=== PATIENT | male | born 1955 | race Caucasian/White ===

== ENCOUNTER 2018-09-13 22:42 | Emergency (ER) | payer OTHER ==
[2018-09-13 23:11] LABS: ABSOLUTE BASOPHILS # (AUTO) 0.1 10^3/uL (0.0-0.2); ABSOLUTE EOSINOPHILS # (AUTO) 0.4 10^3/uL (0.0-0.6); ABSOLUTE LYMPHOCYTES (AUTO) 4.9 10^3/uL (0.5-4.7); ABSOLUTE MONOCYTES (AUTO) 1.3 10^3/uL (0.1-1.4); ABSOLUTE NEUT (AUTO) 6.9 10^3/uL (1.7-8.2); BASOPHILS % (AUTO) 0.5 % (0-2); EOSINOPHILS % (AUTO) 3.1 % (0-6); HEMATOCRIT 49.2 % (37.9-51.0); HEMOGLOBIN 16.7 g/dL (13.5-17.0); LYMPHOCYTES % (AUTO) 36.1 % (13-45); MEAN CORPUSCULAR HEMOGLOBIN 31.7 pg (27.0-33.4); MEAN CORPUSCULAR VOLUME 93 fl (80-97); MONOCYTES % (AUTO) 9.5 % (3-13); PLATELET COUNT 335 10^3/uL (150-450); RED BLOOD COUNT 5.28 10^6/uL (4.35-5.55); RED CELL DISTRIBUTION WIDTH 14.7 % (11.5-14.0); SEGMENTED NEUTROPHILS % (AUTO) 50.8 % (42-78); TOTAL CELLS COUNTED % (AUTO) 100 %; WHITE BLOOD COUNT 13.6 10^3/uL (4.0-10.5)
--- NOTE | 2018-09-13 23:13 | RADIOLOGY REPORT (SQ) ---
EXAM DESCRIPTION: CT HEAD WITHOUT IV CONTRAST COMPLETED DATE/TME: 09/13/2018 00:00 CLINICAL HISTORY: 62 years, Male, s/s of a stroke. Weakness COMPARISON: None. TECHNIQUE: 508 Images stored on PACS. All CT scanners at this facility use dose modulation, iterative reconstruction, and/or weight based dosing when appropriate to reduce radiation dose to as low as reasonably achievable (ALARA). [facility]: Dose Right [facility]: CareDose [facility]: Dose Right [facility]: Teradose 4D [facility]: [place]ta Analog LIMITATIONS: None. FINDINGS: The globes are intact. Mucosal thickening of the ethmoid air cells. Polyp of the right maxillary sinus. No displaced or depressed skull fracture. No intra or extra-axial hemorrhage. Diffuse atrophy. Hypodensities in the periventricular and subcortical white matter consistent with sequelae of small vessel ischemic change. Wedge-shaped area of diminished attenuation in the left temporo-parietal region consistent with age indeterminate infarct. This is nearly isodense to CSF, suggesting this is at least subacute or old in nature. However there is a second slightly wedge-shaped area of diminished attenuation in the left parieto-occipital region, consistent with infarct of indeterminate age. No mass or midline shift. IMPRESSION: What is likely a remote area of infarct in the left temporoparietal region. Atrophy. Small vessel ischemic change. Age-indeterminate infarct in the left parieto-occipital region. TECHNICAL DOCUMENTATION: Quality ID # [id number]: Final reports with documentation of one or more dose reduction techniques (e.g., Automated exposure control, adjustment of the mA and/or kV according to patient size, use of iterative reconstruction technique) copyright 2011 [employer]- All Rights Reserved
[2018-09-13 23:14] LABS: INTERNATIONAL RATION (INR) 0.92; PROTHROMBIN TIME 12.8 SEC (11.4-15.4)
[2018-09-13 23:15] LABS: PARTIAL THROMBOPLASTIN TIME 31.3 SEC (23.5-35.8)
--- NOTE | 2018-09-13 23:19 | RADIOLOGY REPORT (SQ) ---
EXAM DESCRIPTION: XR CHEST 1 VIEW COMPLETED DATE/TME: 09/13/2018 22:56 CLINICAL HISTORY: 62 years, Male, stroke. Weakness COMPARISON: None. NUMBER OF VIEWS: 1 TECHNIQUE: Portable chest LIMITATIONS: None. FINDINGS: The heart size is normal. Osteopenia. COPD. Subsegmental atelectasis versus infiltrate left lung base. No pneumothorax IMPRESSION: Subsegmental atelectasis or infiltrate left lung base. Osteopenia. COPD copyright 2010 [employer]- All Rights Reserved
[2018-09-13 23:23] LABS: ALANINE AMINOTRANSFERASE 21 U/L (21-72); ALBUMIN 4.2 g/dL (3.5-5.0); ALKALINE PHOSPHATASE 72 U/L (38-126); ANION GAP 10 (5-19); ASPARTATE AMINO TRANSFERASE 21 U/L (17-59); BILIRUBIN,DIRECT 0.1 mg/dL (0.0-0.4); BILIRUBIN,TOTAL 0.3 mg/dL (0.2-1.3); BLOOD UREA NITROGEN 17 mg/dL (7-20); CALCIUM 9.7 mg/dL (8.4-10.2); CARBON DIOXIDE 24 mmol/L (22-30); CHLORIDE 106 mmol/L (98-107); CREATINE KINASE 53 U/L (55-170); GLUCOSE 104 mg/dL (75-110); SODIUM 139.6 mmol/L (137-145); TOTAL PROTEIN 7.2 g/dL (6.3-8.2)
[2018-09-13 23:30] LABS: POTASSIUM 4.5 mmol/L (3.6-5.0)
[2018-09-13 23:36] LABS: CREATINE KINASE MB < 0.22 ng/mL (<4.55); TROPONIN I < 0.012 ng/mL
[2018-09-13] MEDS ORDERED: ALTEPLASE INJ 100 MG VIAL ONE (23:51)
--- NOTE | 2018-09-13 23:59 | ER Document Report ---
ED General - General Chief Complaint: S/S of Possible Stroke Stated Complaint: STROKE SYMPTOMS Time Seen by Provider: 09/13/18 22:56 Mode of Arrival: Medic Information source: Emergency Med Personnel Notes: 62-year-old male brought to the emergency department by EMS for CVA. Patient was complaining of a headache at 2030. At 2154 the patient began stumbling and knocked over a TV. noticed the patient to have a right-sided facial droop, right upper and lower extremity weakness. She gave 325 mg of aspirin and called EMS. Patient does not follow-up with a primary care physician. He denies any medical problems. He states that he is not on any medications. He denies any recent trauma or surgeries. TRAVEL OUTSIDE OF THE [place] IN LAST 30 DAYS: No - HPI Onset: Just prior to arrival Onset/Duration: Sudden Quality of pain: No pain Severity: Severe Associated symptoms: None Exacerbated by: Denies Relieved by: Denies Similar symptoms previously: No Recently seen / treated by doctor: No - Related Data Allergies/Adverse Reactions: No Known Allergies Allergy (Unverified 09/13/18 23:23) Past Medical History - General Information source: Patient - Social History Smoking Status: Current Every Day Smoker Chew tobacco use (# tins/day): No Frequency of alcohol use: None Family History: Reviewed & Not Pertinent Patient has suicidal ideation: No Patient has homicidal ideation: No Renal/ Medical History: Denies: Hx Peritoneal Dialysis Review of Systems - Review of Systems Constitutional: No symptoms reported EENT: No symptoms reported Cardiovascular: No symptoms reported Respiratory: No symptoms reported Gastrointestinal: No symptoms reported Genitourinary: No symptoms reported Musculoskeletal: No symptoms reported Skin: No symptoms reported Neurological/Psychological: Weakness, Paralysis, Speech impairment, Numbness -: Yes All other systems reviewed and negative Physical Exam - Vital signs Vitals: Pulse Ox 95 09/13/18 22:56 - Notes Notes: PHYSICAL EXAMINATION: GENERAL: Well-appearing, well-nourished HEAD: Atraumatic, normocephalic. EYES: Pupils equal round and reactive to light, extraocular movements intact, sclera anicteric, conjunctiva are normal. ENT: Nares patent, oropharynx clear without exudates. Moist mucous membranes. NECK: Normal range of motion, supple without lymphadenopathy LUNGS: Breath sounds clear to auscultation bilaterally and equal. No wheezes rales or rhonchi. HEART: Regular rate and rhythm without murmurs ABDOMEN: Soft, nontender, nondistended abdomen. No guarding, no rebound. No masses appreciated. Musculoskeletal: Normal range of motion, no pitting or edema. No cyanosis. NEUROLOGICAL: Right facial droop, right upper extremity paralysis, right lower extremity weakness, right upper and lower extremity sensory loss, aphasia, dysarthria PSYCH: Normal mood, normal affect. SKIN: Warm, Dry, normal turgor, no rashes or lesions noted. Course - Re-evaluation Re-evalutation: 09/14/18 02:06 TPA and NIH forms hand completed. CT head done. L occipital parietal age indeterminant stroke seen. Symptom onset at 2153. Patient is in the TPA window. He wants to wait until his arrives before deciding whether or not to get TPA. I contacted [facility] for transfer. I spoke with the neurologist store operations specialist, Dr. Reyes. He's agreeable with transfer. Patient's now at bedside. They're debating the risks and benefits of TPA. Patient decided that he wants the TPA. It was administered while in the ED. Patient stable on transfer. 09/14/18 02:11 - Vital Signs Vital signs: Temp Pulse Resp BP Pulse Ox 97.2 F 76 18 106/70 97 09/13/18 23:20 09/14/18 00:00 09/14/18 00:00 09/14/18 00:00 09/14/18 00:00 - Laboratory Result Diagrams: 09/13/18 22:22 09/13/18 22:22 Laboratory results interpreted by me: 09/13/18 09/13/18 22:22 22:22 WBC 13.6 H RDW 14.7 H Absolute Lymphocytes 4.9 H Creatine Kinase 53 L Discharge - Discharge Clinical Impression: CVA (cerebral vascular accident) Qualifiers: CVA mechanism: unspecified Qualified Code(s): I63.9 - Cerebral infarction, unspecified Condition: Stable Disposition: [facility]
[2018-09-14 00:21] VITALS: BP 106/70
--- NOTE | 2018-09-14 08:01 | EKG REPORT ---
SEVERITY:- NORMAL ECG - SINUS RHYTHM : Confirmed by: Reinaldo Guerrero MD 14-Sep-2018 08:00:05
== END 2018-09-14 00:23 | disposition short-term general hospital (02) ==
LOC: ER 22:42
DX: I63.9 Cerebral infarction, unspecified (principal); R29.810 Facial weakness; M62.81 Muscle weakness (generalized); F17.200 Nicotine dependence, unspecified, uncomplicated
CPT/HCPCS: 93005; 99285; 96365; 36415; 82553; 82962; 82550; 85025; 85610; 85730; 80053; 84484; 71045; 70450; 93010; J2997